=== PATIENT | male | born 1970 | race Caucasian/White ===

== ENCOUNTER 2019-02-13 08:42 | Emergency (ER) | payer BC, OTHER ==
[~2019-02-13] VITALS: Ht 167.4 cm; Wt 123.6 kg
--- NOTE | 2019-02-13 09:08 | ED Back Pain ---
General Chief Complaint: Back Problems Stated Complaint: BACK PAIN Nursing Triage Note: AMB TO ROOM WITH FEMALE PATIENT REPORTS THAT HE WAS BENDING OVER LAST NIGHT AND WHEN STANDING UP HAD ONSET OF PAIN Nursing Sepsis Screen: No Definite Risk Source of Information: Patient, Spouse Exam Limitations: No Limitations History of Present Illness Date Seen by Provider: Feb 13, 2019 Time Seen by Provider: 08:52 Initial Comments Patient present ER by private conveyance with chief complaint that yesterday he was bending over and when he stood back up he experienced some pain in his lower back radiating to bilateral buttock cheeks. He's having no numbness, saddle anesthesia, paresthesias, dysuria, hematuria, incontinence of bowel or bladder. He's been spitting most the day laying on the couch and took 2x 500 mg of Tylenol yesterday. He denies a history of back pain, back surgery, back trauma or imaging. He denies any significant medical or surgical history. He does not take any medications routinely. He does not drink smoke or use drugs. Allergies and Home Medications Allergies Coded Allergies: No Known Drug Allergies (Unverified , 02/13/19) Home Medications No Active Prescriptions or Reported Meds Patient Home Medication List Home Medication List Reviewed: Yes Review of Systems Constitutional: No chills, No diaphoresis EENTM: No ear discharge, No hearing loss Respiratory: No cough, No short of breath Cardiovascular: No chest pain, No edema Gastrointestinal: No abdominal pain, No nausea Genitourinary: No discharge, No dysuria All Other Systems Reviewed Negative Unless Noted: Yes Past Amshrcc-Gvfgqe-Lgrkme Hx Patient Social History Alcohol Use: Denies Use Recreational Drug Use: No Smoking Status: Never a Smoker Recent Foreign Travel: No Contact w/Someone Who Travel: No Recent Infectious Disease Expo: No Past Medical History Surgeries: No Respiratory: No Cardiac: No Neurological: No Genitourinary: No Gastrointestinal: No Musculoskeletal: No Endocrine: No Cancer: No Psychosocial: No Integumentary: No Physical Exam Vital Signs Vital Signs - First Documented 02/13/19 08:46 Temp 37.0 Pulse 63 Resp 18 B/P (MAP) 141/82 (101) Pulse Ox 97 O2 Delivery Room Air Capillary Refill : Less Than 3 Seconds Height, Weight, BMI Height: '" Weight: lbs. oz. kg; 44.00 BMI Method: General Appearance: Mild Distress, Obese HEENT: PERRL/EOMI, Pharynx Normal, Moist Mucous Membranes Neck: Full Range of Motion, Normal Inspection, Non Tender, Supple Cardiovascular: Regular Rate, Rhythm, No Edema, Normal Peripheral Pulses Respiratory: No Accessory Muscle Use, No Respiratory Distress Peripheral Pulses: 2+ Dorsalis Pedis (R), 2+ Left Dors-Pedis (L) Back: Normal Inspection, No CVA Tenderness, No Vertebral Tenderness, Other (paravertebral spinal tenderness to palpation over the lumbar spine bilaterally) Extremity: Normal Capillary Refill, Normal Inspection, Non Tender, No Pedal Edema Neurologic/Psychiatric: Alert, Oriented x3, No Motor/Sensory Deficits Skin: Normal Color, Warm/Dry Progress/Results/Core Measures Results/Orders My Orders Orders - JOSE JUAN AGUILAR Ketorolac Injection (Toradol Injection) (02/13/19 09:15) Orphenadrine Injection (Norflex Injectio (02/13/19 09:15) Vital Signs/I&O 02/13/19 08:46 Temp 37.0 Pulse 63 Resp 18 B/P (MAP) 141/82 (101) Pulse Ox 97 O2 Delivery Room Air Blood Pressure Mean: 101 POS Progress Progress Note : Time: 09:08 Progress Note Toradol 60 mg IM, Norflex 60 mg IM, put him on a full prescription dose of NSAIDs, topical creams, back brace, conservative care. We have discussed return precautions and red flag signs. We've discussed follow-up plans in 1-2 weeks with primary care if not seeing some improvement. Patient is okay with this plan. Departure Impression Primary Impression: Lumbago Qualified Codes: M54.5 - Low back pain Disposition: 01 HOME, SELF-CARE Condition: Stable Departure-Patient Inst. Decision time for Depature: 09:09 Referrals: NO,LOCAL PHYSICIAN (PCP/Family) Primary Care Physician Patient Instructions: LOCAL PHYSICIAN LIST, Low Back Pain (DC) Add. Discharge Instructions: Obtain a back brace and wear it on the days that you need it. Use topical creams such as icy hot, Biofreeze or capsaicin oil. Massage, chiropractor's and eventually physical therapy from your primary care doctor may be indicated. For the next couple weeks you should be at a prescription strength dose of NSAIDs such as ibuprofen 800 mg 3 times a day or prescription naproxen 500 mg twice a day. You may use Tylenol 1000 g every 8 hours as needed for pain. Return to the ER if you're having inability to walk, loss of control of your bowels or bladder, numbness or weakness. Cyclobenzaprine 1 tablet every 8 hours as needed for muscle spasms of the back. All discharge instructions reviewed with patient and/or family. Voiced understanding. Scripts Naproxen (Naprosyn) 500 Mg Tablet 500 MG PO BID, #30 TAB 0 Refills Prov: JOSE JUAN AGUILAR 02/13/19 Cyclobenzaprine HCl (Cyclobenzaprine HCl) 10 Mg Tablet 10 MG PO Q8H PRN for SPASMS, #15 TAB 0 Refills Prov: JOSE JUAN AGUILAR 02/13/19 Work/School Note: Work Release Form Date Seen in the Emergency Department: Feb 13, 2019 Return to Work: Feb 15, 2019 Restrictions: Need Release from Doctor Other Restrictions Listed Below: Do not lift, push or pull more than 40 pounds until 02/20/19. JOSE JUAN AGUILAR Feb 13, 2019 09:08 POS
[2019-02-13] MEDS ORDERED: CYCL10TA9 PO (09:13)
[2019-02-13] MEDS ORDERED: NAPR-1071 PO (09:13)
[2019-02-13] MEDS ORDERED: ORPHENADRINE 60 MG/2 ML (NORFLEX) AMP IM ONE (09:15)
[2019-02-13] MEDS ORDERED: KETOROLAC 60 MG/2 ML VIAL IM ONE (09:15)
[2019-02-13 09:17] VITALS: BP 141/82
== END 2019-02-13 09:17 | disposition home or self-care (01) ==
LOC: ER 08:44
DX: M54.5 Low back pain (principal); X50.1XXA Overexertion from prolonged static or awkward postures, initial encounter
CPT/HCPCS: 99284

== ENCOUNTER 2021-09-22 23:42 | Emergency (ER) | payer BC ==
[~2021-09-22] VITALS: Ht 167.7 cm; Wt 129.0 kg
[~2021-09-22 23:42] MED LIST: CYCL10TA25 PO; NAPR-1071 PO
--- NOTE | 2021-09-22 23:58 | ED Fall/Injury ---
General Stated Complaint: CHEST PAIN Source: patient Exam Limitations: no limitations History of Present Illness Date Seen by Provider: Sep 22, 2021 Time Seen by Provider: 23:45 Initial Comments 51-year-old male with past medical history he believes of WPW coming in due to chest pain. Says it started around 2 hours prior to arrival, constant, 1 out of 10, throbbing in the center of his chest radiating through to his back. 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 He has been to multiple electric cell tender, and he says that they have not really said anything about it. He is never had a syncopal episode, and no one in his family has young from unexpected cau ses. Denies any shortness of breath, abdominal pain, nausea, vomiting, diarrhea, fever, chills, weakness, numbness, headache, vision changes, or any other concerns. Took some Advil earlier today which helped somewhat. Allergies and Home Medications Allergies Coded Allergies: No Known Drug Allergies (Unverified , 02/13/19) Patient Home Medication List Home Medication List Reviewed: Yes Triamcinolone Acetonide (Triamcinolone Acetonide 0.1% Lotion) 0.1 % Lotion, (Reported) Entered as Reported by: KENY MONIQUE on 09/23/2141 Last Action: New Order Discontinued Medications Cyclobenzaprine HCl (Cyclobenzaprine HCl) 10 Mg Tablet, 10 MG PO Q8H PRN for SPASMS Discontinued Reason: Referral/FU Appt-Addtl Prescribed by: JOSE JUAN AGUILAR on 02/13/19912 Last Action: Discontinued Naproxen (Naprosyn) 500 Mg Tablet, 500 MG PO BID Discontinued Reason: Referral/FU Appt-Addtl Prescribed by: JOSE JUAN AGUILAR on 02/13/19912 Last Action: Discontinued Review of Systems Review of Systems Constitutional: No fever Eyes: Denies Blurred Vision Ears, Nose, Mouth, Throat: no symptoms reported Respiratory: no symptoms reported Cardiovascular: chest pain Gastrointestinal: no symptoms reported Genitourinary: no symptoms reported Musculoskeletal: no symptoms reported Skin: no symptoms reported Psychiatric/Neurological: No Symptoms Reported All Other Systems Reviewed Negative Unless Noted: Yes Past Qrmjkbr-Cufiac-Ihehhb Hx Patient Social History Tobacco Use?: No Substance use?: No Alcohol Use?: No Past Medical History Surgeries: No Respiratory: No Cardiac: No Neurological: No Genitourinary: No Gastrointestinal: No Musculoskeletal: No Endocrine: No Cancer: No Psychosocial: No Integumentary: No Physical Exam Vital Signs Vital Signs - First Documented 09/22/21 23:45 Temp 36.6 Pulse 70 Resp 16 B/P (MAP) 154/91 (112) Pulse Ox 97 O2 Delivery Room Air Capillary Refill : Height, Weight, BMI Height: '" Weight: lbs. oz. kg; 44.00 BMI Method: General Appearance: WD/WN, no apparent distress HEENT: PERRL/EOMI, normal ENT inspection, pharynx normal Neck: non-tender, full range of motion, supple, normal inspection Cardiovascular: regular rate, rhythm, no edema, no murmur Respiratory: chest non-tender, lungs clear, normal breath sounds, no respiratory distress, no accessory muscle use Peripheral Pulses: 2+ Radial Pulses (R), 2+ Radial Pulses (L) Gastrointestinal: normal bowel sounds, non tender, soft; No distended, No guarding, No rebound Back: normal inspection, no CVA tenderness Extremities: normal range of motion, non-tender, normal inspection, no pedal edema, no calf tenderness, normal capillary refill Neurologic/Psychiatric: no motor/sensory deficits, alert, normal mood/affect, other (Normal gait) Skin: normal color, warm/dry Lymphatic: no adenopathy [place] Coma Score Best Eye Response: (4) Open Spontaneously Best Verbal Response: (5) Oriented Best Motor Response: (6) Obeys Commands Progress/Results/Core Measures Results/Orders Lab Results Laboratory Tests Test 09/22/21 23:55 09/23/21 01:30 Range/Units White Blood Count 11.6 H 4.3-11.0 10^3/uL Red Blood Count 4.69 4.30-5.52 10^6/uL Hemoglobin 13.4 13.3-17.7 g/dL Hematocrit 40 40-54 % Mean Corpuscular Volume 86 80-99 fL Mean Corpuscular Hemoglobin 29 25-34 pg Mean Corpuscular Hemoglobin Concent 33 32-36 g/dL Red Cell Distribution Width 13.5 10.0-14.5 % Platelet Count 171 130-400 10^3/uL Mean Platelet Volume 9.6 9.0-12.2 fL Immature Granulocyte % (Auto) 0 % Neutrophils (%) (Auto) 62 42-75 % Lymphocytes (%) (Auto) 27 12-44 % Monocytes (%) (Auto) 6 0-12 % Eosinophils (%) (Auto) 4 0-10 % Basophils (%) (Auto) 1 0-10 % Neutrophils # (Auto) 7.2 1.8-7.8 10^3/uL Lymphocytes # (Auto) 3.1 1.0-4.0 10^3/uL Monocytes # (Auto) 0.7 0.0-1.0 10^3/uL Eosinophils # (Auto) 0.5 H 0.0-0.3 10^3/uL Basophils # (Auto) 0.1 0.0-0.1 10^3/uL Immature Granulocyte # (Auto) 0.0 0.0-0.1 10^3/uL Prothrombin Time 12.3 12.2-14.7 SEC INR Comment 0.9 0.8-1.4 Activated Partial Thromboplast Time 27 24-35 SEC Sodium Level 138 135-145 MMOL/L Potassium Level 3.9 3.6-5.0 MMOL/L Chloride Level 102 98-107 MMOL/L Carbon Dioxide Level 26 21-32 MMOL/L Anion Gap 10 5-14 MMOL/L Blood Urea Nitrogen 12 7-18 MG/DL Creatinine 0.80 0.60-1.30 MG/DL Estimat Glomerular Filtration Rate 108 BUN/Creatinine Ratio 15 Glucose Level 101 70-105 MG/DL Calcium Level 8.7 8.5-10.1 MG/DL Corrected Calcium 8.6 8.5-10.1 MG/DL Magnesium Level 1.8 1.6-2.4 MG/DL Total Bilirubin 0.2 0.1-1.0 MG/DL Aspartate Amino Transf (AST/SGOT) 15 5-34 U/L Alanine Aminotransferase (ALT/SGPT) 12 0-55 U/L Alkaline Phosphatase 63 40-136 U/L Troponin I < 0.30 <0.30 NG/ML Pro-B-Type Natriuretic Peptide 65.6 <75.0 PG/ML Total Protein 7.1 6.4-8.2 GM/DL Albumin 4.1 3.2-4.5 GM/DL Lipase 10 8-78 U/L My Orders Orders - KRUMSICK,MONSERRAT K MD Cbc With Automated Diff (09/22/21 23:51) Magnesium (09/22/21 23:51) Chest 1 View Ap/Pa Only (09/22/21 23:51) Ekg Tracing (09/22/21 23:51) Comprehensive Metabolic Panel (09/22/21:51) Protime With Inr (09/22/21:51) Partial Thromboplastin Time (09/22/21:51) O2 (09/22/21:51) Monitor-Rhythm Ecg Trace Only (09/22/21:51) Aspirin Chewable Tablet (Baby Aspirin Ch (09/23/21 00:00) Ed Iv/Invasive Line Start (09/22/21:51) Lipase (09/22/21:51) Troponin I Fs (09/22/21:51) Probnp Fs (09/22/21 23:51) Nitroglycerin Ointment (Nitrobid Ointme (09/23/21 00:00) Troponin I Fs (09/23/21 01:30) Medications Given in ED Current Medications Medications Dose Ordered Sig/Shelby Route Start Time Stop Time Status Last Admin Dose Admin Aspirin 324 mg ONCE ONCE PO 09/23/21 00:00 09/23/21 00:01 DC 09/23/21 00:07 324 MG Nitroglycerin 1 inch ONCE ONCE TOP 09/23/21 00:00 09/23/21 00:01 DC 09/23/21 00:07 1 INCH Vital Signs/I&O 09/22/21 23:45 Temp 36.6 Pulse 70 Resp 16 B/P (MAP) 154/91 (112) Pulse Ox 97 O2 Delivery Room Air Progress Progress Note : Progress Note Well-appearing 51-year-old male with above history coming in due to chest discomfort. ABCs were intact and vitals were stable on presentation. Physical exam reassuring with no focal abnormalities. The pain is very mild, his blood pressure is slightly elevated, we will give him some Nitropaste to see if that helps. Also given full dose aspirin. 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 Chest x-ray, IV with basic labs including cardiac biomarkers ordered. Given that he came in rapidly we will do a repeat troponin as well. His HEART score is otherwise 2 and he is lower risk. With negative troponin x2 and his pain being gone I feel confident this does not seem like ACS. He has modified Dodson criteria score of 0 making him low risk for PE and is PERC negative. Chest x-ray clear with no signs of pneumonia, pneumothorax, normal cardiac silhouette on interpretation. I believe the patient is stable for discharge with outpatient follow-up. He was sent home with strict return precautions Initial ECG Impression Date: Sep 23, 2021 Initial ECG Impression Time: 23:52 Initial ECG Rate: 62 Initial ECG Rhythm: Normal Sinus Comment Narrow QRS, normal axis, no significant ST changes or T wave abnormalities, delta wave consistent with WPW Diagnostic Imaging Diagonstic Imaging: Xray (chest) Comments X-ray of the chest ordered and interpreted by me showing no obvious infiltrate for pneumonia, no pneumothorax, normal cardiac silhouette Departure Impression Primary Impression: Chest pain Qualified Codes: R07.82 - Intercostal pain Disposition: 01 HOME, SELF-CARE Condition: Stable Departure-Patient Inst. Decision time for Depature: 02:10 Referrals: NO,LOCAL PHYSICIAN (PCP) Primary Care Physician WERO MOFFETT JR, MD Patient Instructions: Chest Pain Add. Discharge Instructions: I want you to follow-up with a electric cell tender that comes into town named Dr. Moffett. His numbers in this paperwork. If chest pain becomes much more severe or you have any other concerns then please come back to the ER. Work/School Note: Work Release Form Date Seen in the Emergency Department: Sep 22, 2021 Return to Work: Sep 24, 2021 Restrictions: No Restrictions MONSERRAT FARIAS MD Sep 22, 2021 23:58
[2021-09-23] MEDS ORDERED: ASPIRIN 81 MG CHEW (CHILDREN'S ASA) PO ONE
[2021-09-23] MEDS ORDERED: NITROGLYCERIN 2% OINT 1 GM UNIT DOSE PACKET TOP ONE
[2021-09-23 00:09] LABS: BASOPHILS # (AUTO) 0.1 10^3/uL (0.0-0.1); BASOPHILS % (AUTO) 1 % (0-10); EOSINOPHILS # (AUTO) 0.5 10^3/uL (0.0-0.3); EOSINOPHILS % (AUTO) 4 % (0-10); HEMATOCRIT 40 % (40-54); HEMOGLOBIN 13.4 g/dL (13.3-17.7); LYMPHOCYTES # (AUTO) 3.1 10^3/uL (1.0-4.0); LYMPHOCYTES % (AUTO) 27 % (12-44); MEAN CORPUSCULAR HEMOGLOBIN 29 pg (25-34); MEAN CORPUSCULAR HGB CONC 33 g/dL (32-36); MEAN CORPUSCULAR VOLUME 86 fL (80-99); MEAN PLATELET VOLUME 9.6 fL (9.0-12.2); MONOCYTES # (AUTO) 0.7 10^3/uL (0.0-1.0); MONOCYTES % (AUTO) 6 % (0-12); NEUTROPHILS # (AUTO) 7.2 10^3/uL (1.8-7.8); NEUTROPHILS % (AUTO) 62 % (42-75); PLATELET COUNT 171 10^3/uL (130-400); WHITE BLOOD COUNT 11.6 10^3/uL (4.3-11.0)
[2021-09-23 00:19] LABS: INR 0.9 (0.8-1.4); PROTHROMBIN TIME PATIENT 12.3 SEC (12.2-14.7)
[2021-09-23 00:29] LABS: CALCIUM 8.7 MG/DL (8.5-10.1); CREATININE SERUM 0.8 MG/DL (0.60-1.30); POTASSIUM 3.9 MMOL/L (3.6-5.0)
[2021-09-23 00:30] LABS: ALBUMIN 4.1 GM/DL (3.2-4.5); BILIRUBIN,TOTAL 0.2 MG/DL (0.1-1.0); MAGNESIUM 1.8 MG/DL (1.6-2.4); TOTAL PROTEIN 7.1 GM/DL (6.4-8.2)
[2021-09-23] MEDS ORDERED: TRIA60LO10 (00:42)
[2021-09-23 02:00] VITALS: BP 132/76
--- NOTE | 2021-09-23 06:54 | Diagnostic Imaging Report ---
INDICATION: Chest pain. No prior examinations are available for comparison. FINDINGS: The heart size, mediastinal configuration, and pulmonary vascularity are within normal limits. There is no pleural effusion, pneumothorax, or pneumonia. The osseous structures are unremarkable. IMPRESSION: No acute cardiopulmonary abnormality. Dictated by: Dictated on workstation # [id number]
== END 2021-09-23 02:00 | disposition home or self-care (01) ==
LOC: EDUNIT# 23:42 → ER FS 23:45
DX: R07.89 Other chest pain (principal)
CPT/HCPCS: 36415; 71045; 80053; 83690; 83735; 83880; 84484; 85025; 85610; 85730; 93005; 93041